=== PATIENT | female | born 1980 | race Two or more races ===

== ENCOUNTER 2024-08-10 14:21 | Outpatient (CLI) | payer OTHER | END 2024-08-10 14:25 | disposition home or self-care (01) | LOC: PRENATAL 14:21 | PROVIDERS: ATTEND Obstetrics & Gynecology Maternal & Fetal Medicine | DX: O36.80X0 Pregnancy with inconclusive fetal viability, not applicable or unspecified (principal); Z36.82 Encounter for antenatal screening for nuchal translucency; O09.529 Supervision of elderly multigravida, unspecified trimester; O36.1999 Maternal care for other isoimmunization, unspecified trimester, other fetus; Z3A.12 12 weeks gestation of pregnancy ==

== ENCOUNTER → 2024-10-04 | Outpatient (CLI) | payer OTHER | END | disposition home or self-care (01) | LOC: PRENATAL 13:43 | PROVIDERS: ATTEND Obstetrics & Gynecology Maternal & Fetal Medicine | DX: O44.00 Complete placenta previa NOS or without hemorrhage, unspecified trimester (principal); O09.529 Supervision of elderly multigravida, unspecified trimester; O36.1999 Maternal care for other isoimmunization, unspecified trimester, other fetus; Z3A.19 19 weeks gestation of pregnancy ==

== ENCOUNTER 2025-01-04 13:51 | Outpatient (CLI) | payer OTHER | END 2025-01-04 14:01 | disposition home or self-care (01) | LOC: PRENATAL 13:51 | PROVIDERS: ATTEND Obstetrics & Gynecology Maternal & Fetal Medicine | DX: O26.849 Uterine size-date discrepancy, unspecified trimester (principal); O36.8199 Decreased fetal movements, unspecified trimester, other fetus; O09.529 Supervision of elderly multigravida, unspecified trimester; O36.1999 Maternal care for other isoimmunization, unspecified trimester, other fetus; Z3A.33 33 weeks gestation of pregnancy ==

== ENCOUNTER 2025-02-18 13:15 | Inpatient (IN) | payer OTHER ==
[~2025-02-18] VITALS: Ht 157.5 cm; Wt 3.2 kg
[2025-02-22] MEDS ORDERED: RINGERS SOLUTION,LACTATED 1,000 ML IV SCH (06:15)
[2025-02-22] MEDS ORDERED: PRENATABS RX T1 EACH PO (06:32)
[2025-02-22 06:44] VITALS: BP 124/88
[2025-02-22 07:56] VITALS: BP 116/75
[2025-02-22 08:13] LABS: BASO % 1.3 % (0.1-1.2); EOS # 0.16 (0.04-0.54); EOS % 1.9 % (0.7-7.0); HEMATOCRIT 38.4 % (34.1-44.9); HEMOGLOBIN 13.4 g/dL (11.2-15.7); LYMPH # 1.88 (1.18-3.74); LYMPH % 21.9 % (19.3-53.1); MEAN CORPUSCULAR HEMOGLOBIN 30.9 pg (25.6-32.2); MONO # 1.18 (0.24-0.82); NEUT # 5.21 (1.56-6.13); NEUT % 60.6 % (34.0-71.1); PLATELET COUNT 187 K/uL (163-369); RED BLOOD COUNT 4.34 M/uL (3.93-5.22)
[2025-02-22 08:18] LABS: MONO % 13.7 % (4.7-12.5)
[2025-02-22 08:32] LABS: INR 1.03; PARTIAL THROMBOPLASTIN TIME 28.7 SECONDS (22.0-34.0); PROTHROMBIN TIME 11.2 SECONDS (9.0-11.5)
[2025-02-22] MEDS ORDERED: OXYTOCIN 500 ML IV SCH (09:00)
[2025-02-22 09:13] LABS: URINE APPEARANCE Clear; URINE BILIRRUBIN Negative (NEGATIVE); URINE BLOOD Negative; URINE COLOR Yellow; URINE GLUCOSE Negative (NEGATIVE); URINE KETONE Trace (NEGATIVE); URINE LEUKOCYTE Negative; URINE NITRATE Negative; URINE PROTEIN Negative (NEGATIVE)
[2025-02-22 09:17] LABS: URINE BACTERIA 841.8 uL (0.0-1933); URINE EPITHELIAL CELLS 14.7 uL (0.0-38.8); URINE RBC 11.7 uL (0.0-20.8); URINE WBC 8.3 uL (0.0-23.2)
[2025-02-22 10:09] LABS: URINE CAST 0.14 uL (0.0-1.40); URINE CRYSTALS FEW /HPF
[2025-02-22 11:13] VITALS: BP 121/76
[2025-02-22 15:43] VITALS: BP 143/84
[2025-02-22] MEDS ORDERED: ERYTHROMYCIN BASE OPHT 1GM EACH TUBE OP ONE (15:46)
[2025-02-22] MEDS ORDERED: OXYTOCIN 10 UNITS/ML VIAL ONE ×2 (15:46→20:34)
[2025-02-22] MEDS ORDERED: MORPHINE SULFATE 4 MG/ML VIAL IV ONE ×2 (19:30→20:00)
[2025-02-22] MEDS ORDERED: MORPHINE SULFATE 4 MG/ML CARTRIDGE IV SCH (21:00)
[2025-02-22 21:43] VITALS: BP 135/77
[2025-02-23 00:01] VITALS: BP 127/77
[2025-02-23 06:55] LABS: BASO % 0.6 % (0.1-1.2); EOS # 0.01 (0.04-0.54); EOS % 0.1 % (0.7-7.0); HEMATOCRIT 34.7 % (34.1-44.9); HEMOGLOBIN 11.9 g/dL (11.2-15.7); LYMPH # 1.31 (1.18-3.74); LYMPH % 12.9 % (19.3-53.1); MEAN CORPUSCULAR HEMOGLOBIN 31.2 pg (25.6-32.2); MONO % 11.8 % (4.7-12.5); NEUT # 7.58 (1.56-6.13); NEUT % 74.3 % (34.0-71.1); PLATELET COUNT 187 K/uL (163-369); RED BLOOD COUNT 3.82 M/uL (3.93-5.22)
[2025-02-23 08:00] VITALS: BP 130/80
[2025-02-23] MEDS ORDERED: OxyCODONE HCL/APAP UD (PERCOCET) PO PRN (08:00)
[2025-02-23] MEDS ORDERED: OxyCODONE HCL 5 MG TABLET (ROXICODONE) PO PRN (08:45)
[2025-02-23] MEDS ORDERED: DOCUSATE SODIUM 100MG CAP PO SCH (09:00)
[2025-02-23] MEDS ORDERED: ACETAMINOPHEN 325 MG TABLET PO SCH (09:00)
[2025-02-23] MEDS ORDERED: PNV,CALCIUM 72/IRON/FOLIC ACID 1 TAB TABLET PO SCH (09:00)
[2025-02-23] MEDS ORDERED: SIMETHICONE 125 MG CAPSULE PO SCH (09:00)
[2025-02-23] MEDS ORDERED: FF) RHO(D) IMMUNE GLOBULIN (POM) IM NR (14:00)
[2025-02-23 16:00] VITALS: BP 119/77
[2025-02-24] VITALS: BP 106/63
[2025-02-24 08:00] VITALS: BP 120/78
[2025-02-24 16:44] VITALS: BP 115/71
[2025-02-25 01:47] VITALS: BP 106/60
[2025-02-25 08:00] VITALS: BP 99/66
== END 2025-02-25 09:47 | disposition home or self-care (01) | DRG 788 ==
LOC: LDR 02-22 06:07 → O/R 02-22 06:07 → OB/GYN 02-22 18:18 → LDR 02-23 13:15 → OB/GYN 02-25 09:47
PROVIDERS: ADMIT Obstetrics & Gynecology; ATTEND Obstetrics & Gynecology
PROC: 4A1HXCZ Monitoring of Products of Conception, Cardiac Rate, External Approach (ICD-10-PCS; 2025-02-22)
PROC: 10D00Z1 Extraction of Products of Conception, Low, Open Approach (ICD-10-PCS; principal; 2025-02-22 15:00)
DX: O33.8 Maternal care for disproportion of other origin (principal); Z3A.39 39 weeks gestation of pregnancy; Z37.0 Single live birth